=== PATIENT | male | born 1975 ===

== ENCOUNTER → 2023-03-11 | Emergency (ER) | payer BC ==
--- OUTSIDE RECORDS SUMMARY | 2023-03-11 09:32 | XMS REPORT | Continuity of Care Document ---
Author Name Unknown Address [address] [facility] [address] [place] [address] [facility] Address [address] [facility] [address] [place] [address] Care Team Providers Care Vocational Examiner Name Role Phone Norm Pascal Attending Clinician Unavailab robert Owens Attending Clinician Unavail able Norm Pascal Admitting Clinician Unavailab robert Owens Admitting Clinician Unavail able Physician, No Primary or Family Admitting Clinic moe Unavailable Payers Payer Name Policy Type Policy Number Effective Date Expirati on Date Source [place] [id number] 2021 00:00:00 Problems Condition Name Condition Details Condition Category Status Onset Date Resolution Date Last Treatment Date Treating Clinician Comments Source Pain of right shoulder joint Pain of Right Shoulder Joint Problem Active 05-13 00:00: 00 [facility] [place] bursitis of right shoulder Subacromia l Bursitis of Right Shoulder Problem Active 05-13 00:00: 00 [facility] Strain of rotator cuff of shoulder Strain of Rotator Cuff of Shoulder Problem Active 05-13 00:00: 00 [facility] Transient synovitis Transient Synovitis Problem Active 2020-03 0-21 00:00: 00 [facility] Sprain of wrist Sprain of Wrist Problem Active 7 00:00: 00 [facility] Allergies, Adverse Reactions, Alerts Allergy Name Allergy Type Status Severity Reaction(s) Onset Date Inactive Date Treating Clinician Comments Source No Known Allergie s DA Active U 7-20 00:00: 00 [facility] [place] [facility] No Known Allergie s DA Active U 2-23 00:00: 00 [facility] [place] [facility] No Known Allergie s DA Active U 8-04 00:00: 00 [facility] [place] [facility] No Known Allergie s DA Active U 2020-03 0 00:00: 00 [facility] [place] [facility] No Known Allergie s DA Active U 2020-03 0 00:00: 00 [facility] [place] [facility] No Known Allergie s DA Active U 7- 00:00: 00 [facility] [place] [facility] No Known Allergie s DA Active U 7 00:00: 00 [facility] [place] [facility] Social History Smoking Status Start Date Stop Date Source Never Smoker [facility] Medications Ordered Medication Name Filled Medication Name Start Date Stop Date Current Medication? Ordering Clinician Indication Dosage Frequency Signature (SIG) Comments Components Source azithromyci n 250 mg tablet TAKE 2 TABLETS BY MOUTH TODAY, THEN TAKE 1 TABLET DAILY FOR 4 DAYS azithromyci n 250 mg tablet TAKE 2 TABLETS BY MOUTH TODAY, THEN TAKE 1 TABLET DAILY FOR 4 DAYS No azithromyc in 250 mg tablet TAKE 2 TABLETS BY MOUTH TODAY, THEN TAKE 1 TABLET DAILY FOR 4 DAYS [facility] benzonatate 200 mg capsule TAKE 1 CAPSULE BY MOUTH THREE TIMES A DAY benzonatate 200 mg capsule TAKE 1 CAPSULE BY MOUTH THREE TIMES A DAY No benzonatat e 200 mg capsule TAKE 1 CAPSULE BY MOUTH THREE TIMES A DAY [facility] clonazepam 1 mg tablet take ONE tab BY MOUTH THREE TIMES DAILY clonazepam 1 mg tablet take ONE tab BY MOUTH THREE TIMES DAILY No clonazepam 1 mg tablet take ONE tab BY MOUTH THREE TIMES DAILY [facility] cyclobenzap rine 10 mg tablet TAKE 1 TABLET BY MOUTH THREE TIMES DAILY FOR 10 DAYS cyclobenzap rine 10 mg tablet TAKE 1 TABLET BY MOUTH THREE TIMES DAILY FOR 10 DAYS No cyclobenza robin 10 mg tablet TAKE 1 TABLET BY MOUTH THREE TIMES DAILY FOR 10 DAYS [facility] eszopiclone 3 mg tablet eszopiclone 3 mg tablet No eszopiclon e 3 mg tablet [facility] ibuprofen 800 mg tablet TAKE 1 TABLET BY MOUTH THREE TIMES DAILY FOR 10 DAYS ibuprofen 800 mg tablet TAKE 1 TABLET BY MOUTH THREE TIMES DAILY FOR 10 DAYS No ibuprofen 800 mg tablet TAKE 1 TABLET BY MOUTH THREE TIMES DAILY FOR 10 DAYS [facility] meloxicam 15 mg tablet meloxicam 15 mg tablet No meloxicam 15 mg tablet [facility] methylpredn isolone 4 mg tablets in a dose pack TAKE 6 TABLETS ON DAY 1 DIRECTED ON PACKAGE AND DECREASE BY 1 TAB EACH DAY FOR A TOTAL OF 6 DAYS methylpredn isolone 4 mg tablets in a dose pack TAKE 6 TABLETS ON DAY 1 DIRECTED ON PACKAGE AND DECREASE BY 1 TAB EACH DAY FOR A TOTAL OF 6 DAYS No methylpred nisolone 4 mg tablets in a dose pack TAKE 6 TABLETS ON DAY 1 DIRECTED ON PACKAGE AND DECREASE BY 1 TAB EACH DAY FOR A TOTAL OF 6 DAYS [facility] neomycin-po lymyxin-hyd rocort 3.5 mg/mL-10,00 0 unit/mL-1 % ear solution neomycin-po lymyxin-hyd rocort 3.5 mg/mL-10,00 0 unit/mL-1 % ear solution No neomycin-p olymyxin-h ydrocort 3.5 mg/mL-10,0 00 unit/mL-1 % ear solution [facility] sertraline 100 mg tablet TAKE 1 TABLET BY MOUTH EVERY DAY sertraline 100 mg tablet TAKE 1 TABLET BY MOUTH EVERY DAY No sertraline 100 mg tablet TAKE 1 TABLET BY MOUTH EVERY DAY [facility] tadalafil 10 mg tablet TAKE ONE (1) TABLET BY MOUTH DAILY NEEDED. tadalafil 10 mg tablet TAKE ONE (1) TABLET BY MOUTH DAILY NEEDED. No tadalafil 10 mg tablet TAKE ONE (1) TABLET BY MOUTH DAILY NEEDED. [facility] tramadol 50 mg tablet TAKE 1 TABLET BY MOUTH THREE TIMES DAILY FOR 10 DAYS tramadol 50 mg tablet TAKE 1 TABLET BY MOUTH THREE TIMES DAILY FOR 10 DAYS No tramadol 50 mg tablet TAKE 1 TABLET BY MOUTH THREE TIMES DAILY FOR 10 DAYS [facility] zolpidem 10 mg tablet take ONE tab BY MOUTH EVERY NIGHT AT BEDTIME NEEDED zolpidem 10 mg tablet take ONE tab BY MOUTH EVERY NIGHT AT BEDTIME NEEDED No zolpidem 10 mg tablet take ONE tab BY MOUTH EVERY NIGHT AT BEDTIME NEEDED [facility] Vital Signs Vital Name Observation Time Observation Value Comments S ource Height 2022-05-13 00:00:00 74 [in_i] [facility] BMI (Body Mass Index) 2022-05-13 00:00:00 27.1 kg/m2 [facility] Body Weight 2022-05-13 00:00:00 211 [lb_av] [facility] Procedures Procedure Date / Time Performed Performing Clinicia n Source XR, shoulder, 2 or more view 2022-05-13 00:00:00 [facility] RF, guidance, for needle placement 2022-05-04 00:00:00 [facility] Encounters Start Date/Time End Date/Time Encounter Type Admission Type Attending Clinicians Care Facility Care Department Encounter ID Source 2023-01-03 14:10:00 2023-01-03 14:10:00 Outpatient Norm WhittakerTO RADI [id number] [facility] 2022-10-07 16:19:00 2022-10-07 16:19:00 Outpatient Norm WhittakerTO RADI [id number] [facility] 2022-05-23 00:00:00 2022-05-23 00:00:00 Outpatient Timur Copeland AO AO [id number] [facility] 2022-05-13 11:10:00 2022-05-13 11:10:00 Outpatient Norm WhittakerTO RADI [id number] [facility] [place] [facility] 2022-05-13 00:00:00 2022-05-13 00:00:00 Dwight Singh MD: [address] [place] [address] , Ph. [phone] [facility] [place] [facility] - F[facility]_Of[facility] [id number] [facility] 2022-05-10 00:00:00 2022-05-10 00:00:00 Outpatient FOG_Mehlhof Dinorah AO AO [id number] [facility] 2022-05-10 00:00:00 2022-05-10 00:00:00 Outpatient FOG_Mehlhof Dinorah AO AO [id number] [facility] 2022-01-08 08:00:00 2022-01-08 23:59:00 Outpatient Norm WhittakerTO RADI [id number] [facility] [place] [facility] 2021-10-22 13:08:00 2021-10-22 13:08:00 Outpatient Norm WhittakerTO RADI [id number] [facility] [place] [facility] 2021-09-05 01:38:00 2021-09-05 01:38:00 Outpatient FOG_Mehlhof Dinorah AO AO [id number] [facility] 2021-07-31 10:52:00 2021-07-31 10:52:00 Outpatient Norm WhittakerTO RADI [id number] [facility] [place] [facility] 2021-01-08 11:45:00 2021-01-08 11:45:00 Outpatient Norm Pascal RADI [id number] [facility] [place] [facility] 2021-01-08 10:29:00 2021-01-08 10:29:00 Outpatient Norm WhittakerTO RADI [id number] [facility] [place] [facility] Results Test Description Test Time Test Comments Results Resul t Comments Source - XR FLUORO NDL 2023-01-03 16:31:00 [facility] 1975 Sex: M Patient Name: DRE VAZQUEZ Unit No: [id number] EXAMS: CPT CODE: [id number] XR FLUORO NDL 10241 FLUOROSCOPICALLY GUIDED INJECTION OF THE LEFT WRIST WITH STEROID AND LIDOCAINE COMMENT: COMPARISON: No prior exams available. After informed consent was obtained a needle was placed in the radiocarpal joint with fluoroscopic guidance. Its position was confirmed by injecting Isovue 300 and obtaining an AP radiograph. 4 seconds of fluoroscopy time was utilized. Subsequently 2mL of Kenalog 40 mg per cc and 1mL of 1 percent lidocaine was injected. No immediate complications were encountered. at 1631 Reported and signed by: David Morales MD CC: Norm Pascal MD Technologist: Mima Bartlett RTGail(R); YAZMIN TRAN [facility] NAME: DRE VAZQUEZAZ [address] [facility] PHYS: Norm Adams MD : 1975 AGE: 47 SEX: M [place], [place] [address] LOC: Y.RAD PHONE #: [phone] EXAM DATE: 01/03/2023 STATUS: REG CLI FAX #: [phone] RAD #: D/C DT PAGE 1 Signed Report Patient Name: RDE VAZQUEZ Unit No: [id number] EXAMS: CPT CODE: [id number] XR FLUORO NDL 91836 (Continued) Transcribed D/ (1631) MykelJCL [facility] NAME: DRE VAZQUEZ [address] [facility] PHYS: Norm Adams MD : 1975 AGE: 47 SEX: M [place], [place] [address] LOC: Y.RAD PHONE #: [phone] EXAM DATE: 01/03/2023 STATUS: REG CLI FAX #: [phone] RAD #: D/C DT PAGE 2 Signed Report - XR FLUORO NDL 2022-10-08 07:02:00 [facility] 1975 Sex: M Patient Name: DRE VAZQUEZ Unit No: [id number] EXAMS: CPT CODE: [id number] XR FLUORO NDL 14018 FLUOROSCOPICALLY GUIDED INJECTION OF THE LEFT WRIST WITH STEROID AND LIDOCAINE COMMENT: COMPARISON: No prior exams available. After informed consent was obtained a needle was placed in the radiocarpal joint with fluoroscopic guidance. Its position was confirmed by injecting Isovue 300 and obtaining an AP radiograph. 3 seconds of fluoroscopy time was utilized. Subsequently 2mL of Kenalog 40 mg per cc and 1mL of 1 percent lidocaine was injected. No immediate complications were encountered. at 0702 Reported and signed by: David Morales MD CC: Norm Pascal MD Technologist: RT Ines.(R) Transcribed D/ (0702) [email or web address] [facility] NAME: DRE VAZQUEZ [address] [facility] PHYS: Norm Adams MD : 1975 AGE: 47 SEX: M [place], [place] [address] LOC: Y.RAD PHONE #: [phone] EXAM DATE: 10/07/2022 STATUS: DEP CLI FAX #: [phone] RAD #: D/C DT PAGE 1 Signed Report Patient Name: DRE VAZQUEZ Unit No: [id number] EXAMS: CPT CODE: [id number] XR FLUORO NDL 89335 (Continued) Orig Print D/T: S: 10/08/2022 (07) [facility] NAME: DRE VAZQUEZ [place] [address] [facility] PHYS: Norm Adams MD : 1975 AGE: 47 SEX: M [place], [place] [address] LOC: Y.RAD PHONE #: [phone] EXAM DATE: 10/07/2022 STATUS: DEP CLI FAX #: [phone] RAD #: D/C DT PAGE 2 Signed Report - XR FLUORO NDL 2022-05-16 13:33:00 [facility] 1975 Sex: M Patient Name: DRE VAZQUEZ Unit No: [id number] EXAMS: CPT CODE: [id number] XR FLUORO NDL 12202 Fluoroscopically guided injection of the left wrist with steroid FINDINGS: After informed consent was obtained a needle was placed in the left wrist with fluoroscopic guidance. Its position was confirmed by injecting Isovue 300 and obtaining a radiograph. Subsequently 2 mL of Kenalog 40 mg per cc and 2 mL of lidocaine was injected. No immediate complications were encountered. 6 seconds of fluoroscopy time was utilized. IMPRESSION: Technically successful steroid injection of the left wrist at 1333 Reported and signed by: Dontrell Dickinson M.D. CC: Norm Pascal M.D. Technologist: RT. Ines(R) Transcribed D/ (1063) Vadim [facility] NAME: DRE VAZQUEZ [place] [address] [place] [address] PHYS: Norm Adams MD : 1975 AGE: 46 SEX: M [place] [address] LOC: Y.RAD PHONE #: [phone] EXAM DATE: 05/13/2022 STATUS: DEP CLI FAX #: [phone] RAD #: D/C DT PAGE 1 Signed Report Patient Name: DRE VAZQUEZ [place] Unit No: [id number] EXAMS: CPT CODE: [id number] XR FLUORO NDL 87203 (Continued) Orig Print D/T: S: 05/16/2022 (1336) [facility] NAME: DRE VAZUQEZ [place] [address] [place] [address] PHYS: Norm Adams MD : 1975 AGE: 46 SEX: M [place], [place] [address] LOC: Y.RAD PHONE #: [phone] EXAM DATE: 05/13/2022 STATUS: DEP CLI FAX #: [phone] RAD #: D/C DT PAGE 2 Signed Report - XR FLUORO NDL 2022-01-09 15:02:00 [facility] 1975 Sex: M Patient Name: DRE VAZQUEZ Unit No: [id number] EXAMS: CPT CODE: [id number] XR FLUORO NDL 50605 FLUOROSCOPICALLY GUIDED INJECTION OF THE LEFT WRIST WITH STEROID AND LIDOCAINE COMMENT: COMPARISON: No prior exams available. After informed consent was obtained a needle was placed in the radiocarpal joint with fluoroscopic guidance. Its position was confirmed by injecting Isovue 300 and obtaining an AP radiograph. 12 seconds of fluoroscopy time was utilized. Subsequently 2mL of Kenalog 40 mg per cc and 1mL of 1 percent lidocaine was injected. No immediate complications were encountered. at 1502 Reported and signed by: David Morales MD CC: Norm Pascal M.D. Technologist: RT. Ines(R) Transcribed D/ (1502) Jenny [facility] NAME: DRE VAZQUEZAZ [address] [place] [address] PHYS: Norm Adams MD : 1975 AGE: 46 SEX: M [place], [place] [address] LOC: Y.RAD PHONE #: [phone] EXAM DATE: 01/08/2022 STATUS: PRE CLI FAX #: [phone] RAD #: D/C DT PAGE 1 Signed Report Patient Name: DRE VAZQUEZ Unit No: [id number] EXAMS: CPT CODE: [id number] XR FLUORO NDL 95310 (Continued) Orig Print D/T: S: 01/09/2022 (4195) [facility] NAME: DRE VAZQUEZ [address] PHYS: Norm Adams MD : 1975 AGE: 46 SEX: M [place], [place] [address] LOC: Y.RAD PHONE #: [phone] EXAM DATE: 01/08/2022 STATUS: PRE CLI FAX #: [phone] RAD #: D/C DT PAGE 2 Signed Report - XR FLUORO NDL 2021-10-23 05:48:00 [facility] : 1975 Sex: M Patient Name: DRE VAZQUEZ Unit No: [id number] EXAMS: CPT CODE: [id number] XR FLUORO NDL 01832 Fluoroscopically guided injection of the left wrist with steroid FINDINGS: After informed consent was obtained a needle was placed in the left wrist with fluoroscopic guidance. Its position was confirmed by injecting Isovue 300 and obtaining a radiograph. Subsequently 2 mL of Kenalog 40 mg per cc and 2 mL of lidocaine was injected. No immediate complications were encountered. 6 seconds of fluoroscopy time was utilized. IMPRESSION: Technically successful steroid injection of the left wrist at 0548 Reported and signed by: Dontrell Dickinson M.D. CC: Norm Pascal M.D. Technologist: RT. Ines(R) Transcribed D/ (0548) [facility] D[facility] VAZ[facility]AZ [address] [facility] PHYS: Norm Adams MD : 1975 AGE: 46 SEX: M [place] [id number] LOC: Y.RAD PHONE #: [phone] EXAM DATE: 10/22/2021 STATUS: DEP CLI FAX #: [phone] RAD #: D/C DT PAGE 1 Signed Report Patient Name: DRE VAZQUEZ Unit No: [id number] EXAMS: CPT CODE: [id number] XR FLUORO NDL 69408 (Continued) Orig Print D/T: S: 10/23/2021 (0552) [facility] NAME: DRE VAZQUEZAZ [address] [facility] PHYS: Norm Adams MD : 1975 AGE: 46 SEX: M [place], [place] [address] LOC: Y.RAD PHONE #: [phone] EXAM DATE: 10/22/2021 STATUS: DEP CLI FAX #: [phone] RAD #: D/C DT PAGE 2 Signed Report - XR ARTHROGRAM WRIST LT 2021-08-03 06:15:00 [facility] 1975 Sex: M Patient Name: DRE VAZQUEZ Unit No: [id number] EXAMS: CPT CODE: [id number] [place] [address] LEFT WRIST ARTHROGRAM, STEROID AND LIDOCAINE INJECTION COMPARISON: No prior exams available. TECHNIQUE: After informed consent was obtained a single-contrast arthrogram was performed with Isovue-[address] Dickinson. 11 seconds of fluoroscopy time were utilized. 4 initial radiographs were obtained in neutral, radial and ulnar deviation and the clenched fist position. 2 mL of Kenalog 40 mg per cc and 1 mL of 1% lidocaine was injected. No immediate complications were encountered. Post exercise films were obtained in radial and ulnar deviation and the lateral position. FINDINGS: Moderate synovitis is present. No acute fracture. Carpal alignment is maintained. No evidence of TFC or ligament tear. Soft tissues are unremarkable. IMPRESSION: Technically successful left wrist arthrogram/steroid injection. . at 0615 Reported and signed by: Dontrell Dickinson M.D. CC: Norm Pascal M.D. Technologist: RT Ines.(R) Transcribed D/ (614) [facility]: DRE VAZQUEZ [place] [address] [place] [address] PHYS: Norm Adams MD : 1975 AGE: 45 SEX: M [place] [address] LOC: Y.RAD PHONE #: [phone] EXAM DATE: 07/31/2021 STATUS: DEP CLI FAX #: [phone] RAD #: D/C DT PAGE 1 Signed Report Patient Name: DRE VAZQUEZ [place] Unit No: [id number] EXAMS: CPT CODE: [id number] [place] [address] (Continued) Orig Print D/T: S: 08/03/2021 (0618) [facility] NAME: DRE VAZQUEZ [place] [address] [place] [address] PHYS: Norm Adams MD : 1975 AGE: 45 SEX: M [place] [address] LOC: Y.RAD PHONE #: [phone] EXAM DATE: 07/31/2021 STATUS: DEP CLI FAX #: [phone] RAD #: D/C DT PAGE 2 Signed Report - XR ARTHROGRAM WRIST LT 2021-01-09 10:07:00 [facility] 1975 Sex: M Patient Name: DRE VAZQUEZ Unit No: [id number] EXAMS: CPT CODE: [id number] [place] [address] LEFT WRIST ARTHROGRAM, STEROID AND LIDOCAINE INJECTION DIAGNOSIS: 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 COMMENT: COMPARISON: No prior exams available. After informed consent was obtained a single-contrast arthrogram was performed with Isovue-300 . 0.3 minutes of fluoroscopy time was utilized. 4 initial radiographs were obtained in neutral, radial and ulnar deviation and the clenched fist position. They revealed irregular filling of the radiocarpal joint and faint opacification of the scapholunate and lunatotriquetral articulations consistent with ligament tears. 2 mL of Kenalog 40 mg per cc and 1 mL of 1% lidocaine was injected. No immediate complications were encountered. Post exercise films were obtained in radial and ulnar deviation and the lateral position. No new findings were observed. at 1007 Reported and signed by: David Morales MD CC: Norm Pascal M.D. Technologist: RT. Ines(R) Transcribed D/ (1007) [facility] D[facility] [address] [facility] PHYS: Norm Adams : 1975 AGE: 45 SEX: [place] [address] LOC: Y.RAD PHONE #: [phone] EXAM DATE: 01/08/2021 STATUS: DEP CLI FAX #: [phone] RAD #: D/C DT PAGE 1 Signed Report Patient Name: DRE VAZQUEZ Unit No: [id number] EXAMS: CPT CODE: [id number] [place] [address] (Continued) Orig Print D/T: S: 01/09/2021 (1010) [facility] NAME: DRE VAZQUEZ [address] [place] [address] PHYS: Norm Adams : 1975 AGE: 45 SEX: M [place], [place] [address] LOC: Y.RAD PHONE #: [phone] EXAM DATE: 01/08/2021 STATUS: DEP CLI FAX #: [phone] RAD #: D/C DT PAGE 2 Signed Report - XR ARTHROGRAM WRIST RT 2018-09-29 16:40:00 Patient Name: DRE VAZQUEZ Unit No: [id number] EXAMS: CPT CODE: [id number] [address] RIGHT WRIST ARTHROGRAM, STEROID AND LIDOCAINE INJECTION DIAGNOSIS: Radiocarpal synovitis is present without evidence for cartilage or ligament tear. COMMENT: COMPARISON: No prior exams available. After informed consent was obtained a single-contrast arthrogram was performed with Isovue-300 . 0.2 minutes of fluoroscopy time was utilized. 4 initial radiographs were obtained in neutral, radial and ulnar deviation and the clenched fist position. They revealed irregular filling of the radiocarpal joint without evidence for leakage into the midcarpal or distal radioulnar joints to suggest tears of the scapholunate or lunatotriquetral ligaments or the triangular fibrocartilage. 2 mL of Kenalog 40 mg per cc and 1 mL of 1% lidocaine was injected. No immediate complications were encountered. Post exercise films were obtained in radial and ulnar deviation and the lateral position. No new findings were observed. at 1640 Reported and signed by: David Morales MD CC: Norm Pascal M.D. Technologist: Mima Bartlett, RT.(R) Transcribed D/ (1640) [facility] NAME: DRE VAZQUEZ [address] [place] [address] PHYS: Norm Adams : 1975 AGE: 43 SEX: M [place], [place] [address] LOC: Y.RAD PHONE #: [phone] EXAM DATE: 09/29/2018 STATUS: REG CLI FAX #: [phone] RAD #: D/C DT PAGE 1 Signed Report Patient Name: DRE VAZQUEZ Unit No: [id number] EXAMS: CPT CODE: [id number] [place] [address] (Continued) Orig Print D/T: S: 09/29/2018 (1643) [facility] NAME: DRE VAZQUEZ [address] [facility] PHYS: Norm Adams : 1975 AGE: 43 SEX: [place], [place] [address] LOC: Y.RAD PHONE #: [phone] EXAM DATE: 09/29/2018 STATUS: REG CLI FAX #: [phone] RAD #: D/C DT PAGE 2 Signed Report
[2023-03-11 10:55] LABS: Hematocrit 44.8 % (39.6-49.0); Lymphocytes % 25.9 % (15.3-44.8); MCV 89.4 fL (80-100); MPV 7.2 fL (7.6-11.3); Platelets 168 thou/uL (152-406); RBC Red Blood Cell Count 5.01 M/uL (4.33-5.43)
[2023-03-11 10:59] LABS: Potassium 4.1 mEq/L (3.5-5.1); Troponin High Sensitivity 7.2 pg/mL (<58.9)
--- NOTE | 2023-03-11 11:45 | RAD REPORT ---
EXAM DESCRIPTION: Nohelia Single View03/11/2023 11:07 am CLINICAL HISTORY: Chest pain COMPARISON: none FINDINGS: The lungs appear clear of acute infiltrate. The heart is normal size IMPRESSION: No acute abnormalities displayed
--- NOTE | 2023-03-11 13:27 | EDPHYS ---
Physician Documentation [facility] Name: Steven Del Rio Age: 47 yrs Sex: Male : 1975 Arrival Date: 03/11/2023 Time: 09:30 Bed 7 Private MD: ED Physician Yash Salazar HPI: 03/11 11:02 This 47 yrs old Male presents to ER via Ambulatory with complaints of Chest Pain. kdr 11:02 The patient or guardian reports chest pain that is located primarily in the anterior kdr chest wall, Lateral as his anterior axillary line. Onset: gradually, 4 day(s) ago. The pain does not radiate. Associated signs and symptoms: Pertinent positives: shortness of breath, Pertinent negatives: abdominal pain, cough, diaphoresis, dizziness, headache, lower extremity pain, lower extremity swelling, lightheadedness, nausea, near syncope, palpitations, recent travel, syncope, vomiting. The chest pain is described as aching, dull. Duration: The patient or guardian reports multiple episodes, that are intermittent, that wax and wane, May be worse when he lays down. Severity of pain: At its worst the pain was very mild in the emergency department the pain is unchanged. The patient has not experienced similar symptoms in the past. The patient has not recently seen a physician. Historical: - Allergies: 09:55 No Known Allergies; ap3 - PMHx: 09:55 Hypercholesterolemia; ap3 - Immunization history:: Adult Immunizations unknown. - Social history:: Smoking status: Patient reports the use of cigarette tobacco products, cigars. ROS: 11:02 Constitutional: Negative for fever, chills, and weight loss, Eyes: Negative for injury, kdr pain, redness, and discharge, ENT: Negative for injury, pain, and discharge, Neck: Negative for injury, pain, and swelling, Respiratory: Negative for shortness of breath, cough, wheezing, and pleuritic chest pain, Abdomen/GI: Negative for abdominal pain, nausea, vomiting, diarrhea, and constipation, Back: Negative for injury and pain, : Negative for injury, bleeding, discharge, and swelling, MS/Extremity: Negative for injury and deformity, Skin: Negative for injury, rash, and discoloration, Neuro: Negative for headache, weakness, numbness, tingling, and seizure activity. Psych: Negative for depression, anxiety, suicide ideation, homicidal ideation, and hallucinations, Allergy/Immunology: Negative for hives, rash, and allergies, Endocrine: Negative for neck swelling, polydipsia, polyuria, polyphagia, and marked weight changes, Hematologic/Lymphatic: Negative for swollen nodes, abnormal bleeding, and unusual bruising, 11:02 Cardiovascular: Positive for chest pain, of the left lateral anterior chest, Exam: 11:02 Constitutional: This is a well developed, well nourished patient who is awake, alert, kdr and in no acute distress. Head/Face: Normocephalic, atraumatic. Eyes: Pupils equal round and reactive to light, extra-ocular motions intact. Lids and lashes normal. Conjunctiva and sclera are non-icteric and not injected. Cornea within normal limits. Periorbital areas with no swelling, redness, or edema. Neck: Trachea midline, no thyromegaly or masses palpated, and no cervical lymphadenopathy. Supple, full range of motion without nuchal rigidity, or vertebral point tenderness. No Meningismus. Chest/axilla: Normal chest wall appearance and motion. Nontender with no deformity. No lesions are appreciated. Cardiovascular: Regular rate and rhythm with a normal S1 and S2. No gallops, murmurs, or rubs. Normal PMI, no JVD. No pulse deficits. Respiratory: Lungs have equal breath sounds bilaterally, clear to auscultation and percussion. No rales, rhonchi or wheezes noted. No increased work of breathing, no retractions or nasal flaring. Abdomen/GI: Soft, non-tender, with normal bowel sounds. No distension or tympany. No guarding or rebound. No evidence of tenderness throughout. Back: No spinal tenderness. No costovertebral tenderness. Full range of motion. Skin: Warm, dry with normal turgor. Normal color with no rashes, no lesions, and no evidence of cellulitis. MS/ Extremity: Pulses equal, no cyanosis. Neurovascular intact. Full, normal range of motion. Neuro: Awake and alert, GCS 15, oriented to person, place, time, and situation. Cranial nerves II-XII grossly intact. Motor strength 5/5 in all extremities. Sensory grossly intact. Cerebellar exam normal. Normal gait. Psych: Awake, alert, with orientation to person, place and time. Behavior, mood, and affect are within normal limits. Vital Signs: 09:53 BP 152 / 76; Pulse 76; Resp 18; Temp 98.1; Pulse Ox 98% ; Weight 94.8 kg; Height 6 ft. ap3 2 in. ; Pain 2/10; 11:09 BP 133 / 94; Pulse 60; Resp 14; Pulse Ox 98% ; ko1 12:21 BP 146 / 97; Pulse 58; Resp 18; Pulse Ox 98% on R/A; ph 14:15 BP 138 / 84; Pulse 52; Resp 16; Pulse Ox 100% ; jl7 09:53 Body Mass Index 26.83 (94.80 kg, 187.96 cm) ap3 09:53 Pain Scale: Adult ap3 MDM: 11:02 Data reviewed: vital signs, nurses notes, lab test result(s), EKG, radiologic studies. kdr 13:26 Patient medically screened. [facility] 03/11 10:19 Order name: Basic Metabolic Panel; Complete Time: 11:44 kdr 03/11 10:19 Order name: CBC with Diff; Complete Time: 11:44 kdr 03/11 10:19 Order name: Troponin HS; Complete Time: 11:44 kdr 03/11 11:45 Order name: Troponin HS; Complete Time: 13:20 kdr 03/11 10:19 Order name: XRAY Chest (1 view); Complete Time: 12:40 kdr 03/11 10:19 Order name: EKG; Complete Time: 10:19 [facility] 03/11 10:19 Order name: Cardiac monitoring; Complete Time: 10:27 kdr 03/11 10:19 Order name: EKG - Nurse/Tech; Complete Time: 10:27 kdr 03/11 10:19 Order name: IV Saline Lock; Complete Time: 10:27 kdr 03/11 10:19 Order name: Labs collected and sent; Complete Time: 10:33 kdr 03/11 10:19 Order name: O2 Per Protocol; Complete Time: 10:27 kdr 03/11 10:19 Order name: O2 Sat Monitoring; Complete Time: 10:27 kdr Administered Medications: No medications were administered Disposition Summary: 03/11/23 13:26 Discharge Ordered Notes: Location: Home kdr Problem: new kdr Symptoms: have improved kdr Condition: Stable kdr Diagnosis - Chest pain, unspecified kdr Followup: kdr - With: Private Physician - When: 2 - 3 days - Reason: If symptoms return, Further diagnostic work-up, Recheck today's complaints, Continuance of care, Re-evaluation by your physician Discharge Instructions: - Discharge Summary Sheet kdr - Nonspecific Chest Pain, Adult kdr Forms: - Medication Reconciliation Form kdr - Thank You Letter kdr - Patient Portal Instructions kdr - Leadership Thank You Letter kdr Signatures: Dispatcher [employer] Yash Tracy MD MD kdr Zahraa Powers RN RN ap3 Lizz Nicolas RN RN ko1 Corrections: (The following items were deleted from the chart) 09:57 09:55 PMHx: Hypertensive disorder; ap3 ap3
--- NOTE | 2023-03-11 13:27 | ER ---
Nurse's Notes [facility] Name: Steven Del Rio Age: 47 yrs Sex: Male : 1975 Arrival Date: 03/11/2023 Time: 09:30 Bed 7 Private MD: Diagnosis: Chest pain, unspecified Presentation: 03/11 09:53 Chief complaint: Patient states: he has been having chest pain for approx 3 days on the ap3 left side of his chest. patient rates his pain as a 2/10 on the pain scale at this time. patient also complains of SOB when laying down. Coronavirus screen: At this time, the client does not indicate any symptoms associated with coronavirus-19. Ebola Screen: No symptoms or risks identified at this time. Initial Sepsis Screen: Does the patient meet any 2 criteria? No. Patient's initial sepsis screen is negative. Does the patient have a suspected source of infection? No. Patient's initial sepsis screen is negative. Risk Assessment: Do you want to hurt yourself or someone else? Patient reports no desire to harm self or others. Onset of symptoms was March 08, 2023. 09:53 Method Of Arrival: Ambulatory ap3 09:53 Acuity: [place] 3 ap3 Triage Assessment: 09:57 General: Appears in no apparent distress. Behavior is calm, cooperative, appropriate ap3 for age. Pain: Complains of pain in anterior aspect of left upper chest and left breast Pain currently is 2 out of 10 on a pain scale. Pain began 2-3 days ago. Neuro: Level of Consciousness is awake, alert, obeys commands, Oriented to person, place, time, situation. Cardiovascular: Reports chest pain, shortness of breath, Patient's skin is warm and dry. Respiratory: Airway is patent Respiratory effort is even, unlabored, Respiratory pattern is regular, symmetrical. Historical: - Allergies: 09:55 No Known Allergies; ap3 - PMHx: 09:55 Hypercholesterolemia; ap3 - Immunization history:: Adult Immunizations unknown. - Social history:: Smoking status: Patient reports the use of cigarette tobacco products, cigars. Screenin:58 Abuse screen: Denies threats or abuse. Nutritional screening: No deficits noted. ap3 Tuberculosis screening: No symptoms or risk factors identified. 11:09 [facility] ED Fall Risk Assessment (Adult) History of falling in the last 3 months, ko1 including since admission No falls in past 3 months (0 pts). Assessment: 10:00 Pain: Pain does not radiate. Pain: Complains of pain in left lateral anterior chest and ko1 chest and left breast and anterior aspect of left upper chest. Pain: Pain Quality of pain is described as aching. Pain: Pain began 2-3 days ago. Neuro: No deficits noted. Cardiovascular: Reports chest pain. Respiratory: No deficits noted. GI: No deficits noted. : No deficits noted. EENT: No deficits noted. Derm: No deficits noted. Musculoskeletal: No deficits noted. 12:21 Reassessment: Patient appears in no apparent distress at this time. Patient and/or ph family updated on plan of care and expected duration. Pain level reassessed. Patient is alert, oriented x 3, equal unlabored respirations, skin warm/dry/pink. rates pain 1/10. Vital Signs: 09:53 BP 152 / 76; Pulse 76; Resp 18; Temp 98.1; Pulse Ox 98% ; Weight 94.8 kg; Height 6 ft. ap3 2 in. ; Pain 2/10; 11:09 BP 133 / 94; Pulse 60; Resp 14; Pulse Ox 98% ; ko1 12:21 BP 146 / 97; Pulse 58; Resp 18; Pulse Ox 98% on R/A; ph 14:15 BP 138 / 84; Pulse 52; Resp 16; Pulse Ox 100% ; jl7 09:53 Body Mass Index 26.83 (94.80 kg, 187.96 cm) ap3 09:53 Pain Scale: Adult ap3 Vitals: 12:21 Cardiac Rhythm Assessment Sinus roseanna. ph ED Course: 09:34 Patient arrived in ED. ts1 09:35 Yash Salazar MD is Attending Physician. kdr 09:47 Lizz Nicolas, MARQUEZ is Primary Nurse. ko1 09:55 Triage completed. ap3 09:58 EKG done, by ED staff, reviewed by Yash Salazar MD. ap3 09:58 Patient maintains SpO2 saturation greater than 95% on room air. ap3 09:58 Arm band placed on right wrist. ap3 09:58 Patient has correct armband on for positive identification. Placed in gown. Bed in low ap3 position. Call light in reach. Side rails up X 1. monitoring tech on. Pulse ox on. NIBP on. 10:30 No provider procedures requiring assistance completed. Inserted saline lock: 20 gauge ko1 in right antecubital area, using aseptic technique. Blood collected. 10:33 Basic Metabolic Panel Sent. ko1 10:33 CBC with Diff Sent. ko1 10:33 Troponin HS Sent. ko1 11:07 X-ray completed. Portable x-ray completed in exam room. Patient tolerated procedure mh1 well. 11:09 XRAY Chest (1 view) In Process Unspecified. EDMS 11:09 Provided Education on: . Door closed. Warm blanket given. Pillow given. ko1 12:21 Troponin HS Sent. ph 14:16 IV discontinued, intact, bleeding controlled, No redness/swelling at site. Pressure jl7 dressing applied. Administered Medications: No medications were administered Medication: 11:09 VIS not applicable for this client. ko1 Outcome: 13:26 Discharge ordered by . kdr 14:16 Discharged to home ambulatory, jl7 14:16 Condition: stable 14:16 Discharge instructions given to patient, Instructed on discharge instructions, follow up and referral plans. Demonstrated understanding of instructions, follow-up care, 14:16 Patient left the ED. jl7 Signatures: Dispatcher [employer] EDMS Yash Salazar MD MD kdr Rosalba Beal 1 Cece Arredondo, RN RN ph Ric Yancey RN RN jl7 Zahraa Powers RN RN ap3 Lizz Nicolas RN RN ko1 [place] PAS PAS ts1 Corrections: (The following items were deleted from the chart) 09:57 09:55 PMHx: Hypertensive disorder; ap3 ap3
[2023-03-11 14:54] VITALS: TEMP 98.1
[2023-03-11 15:19] VITALS: BP 138/84; O2SAT 100
== END ==
LOC: ER 09:30
DX: R07.89 Other chest pain (principal); F17.290 Nicotine dependence, other tobacco product, uncomplicated
CPT/HCPCS: 36415; 71045; 80048; 84484; 85025; 99285